=== PATIENT | female | born 1990 | race Caucasian/White ===

== ENCOUNTER → 2020-07-24 | Outpatient (CLI) | payer OTHER ==
[~2020-07-24] VITALS: Ht 175.3 cm; Wt 54.0 kg
== END ==
LOC: OPSV 08:17
DX: G35 Multiple sclerosis (principal); E11.9 Type 2 diabetes mellitus without complications; E66.9 Obesity, unspecified; R00.2 Palpitations; Z87.898 Personal history of other specified conditions; Z83.3 Family history of diabetes mellitus; Z78.9 Other specified health status; F17.200 Nicotine dependence, unspecified, uncomplicated
CPT/HCPCS: 96365; 96366; J2350; J2930; J7030

== ENCOUNTER → 2020-08-07 | Outpatient (CLI) | payer OTHER ==
[~2020-08-07] VITALS: Ht 175.3 cm; Wt 122.6 kg
== END ==
LOC: OPSV 07:24
DX: G35 Multiple sclerosis (principal); E11.9 Type 2 diabetes mellitus without complications; E66.9 Obesity, unspecified; R00.2 Palpitations
CPT/HCPCS: 96365; 96366; J2350; J2930; J7050

== ENCOUNTER → 2021-05-08 | Outpatient (CLI) | payer OTHER ==
[~2021-05-08] VITALS: Ht 172.7 cm; Wt 110.7 kg
== END ==
LOC: OPSV 12:00
DX: G35 Multiple sclerosis (principal)
CPT/HCPCS: 96375; 96413; 96415; J2350; J2930; J7030

== ENCOUNTER → 2021-11-08 | Outpatient (CLI) | payer OTHER | LOC: OPSV 10:00 | DX: G35 Multiple sclerosis (principal) | CPT/HCPCS: 96375; 96413; 96415; J2350; J2930; J7030 ==